=== PATIENT | female | born 1970 | race Caucasian/White ===

== ENCOUNTER 2020-09-07 06:18 | Day surgery (SDC) | payer OTHER ==
[~2020-09-07] VITALS: Ht 167.6 cm; Wt 102.1 kg
[2020-09-07] MEDS ORDERED: IBUP200 (07:14)
[2020-09-07] MEDS ORDERED: Aspir 8181 MG PO (07:14)
[2020-09-07] MEDS ORDERED: KRILL OIL500 MG PO (07:15)
--- NOTE | 2020-09-07 08:35 | NUR ---
09/07/20 0835 Norman Dawkins 0.15MG EPI ADDED TO 30ML 0.5% BUPIVACAINE PL TO ACHIEVE SOLUTION OF 0.5% BUPIVACAINE WITH EPI 1:200,000. 10ML'S OF THIS SOLUTION INJ INTO OPSITE BY PR. DUNLAP AT 0870.
== END 2020-09-07 09:37 | disposition home or self-care (01) ==
LOC: ORSCSDS 06:18
PROVIDERS: Orthopaedic Surgery
PROC: 0SBD4ZZ Excision of Left Knee Joint, Percutaneous Endoscopic Approach (ICD-10-PCS; principal; 2020-09-07 07:30)
DX: S83.242A Other tear of medial meniscus, current injury, left knee, initial encounter (principal); M17.12 Unilateral primary osteoarthritis, left knee; E66.01 Morbid (severe) obesity due to excess calories; Z68.37 Body mass index [BMI] 37.0-37.9, adult
CPT/HCPCS: A9270; J0171; J0690; J1100; J1885; J2250; J2405; J2704; J3010; J7120